=== PATIENT | male | born 1985 | race Caucasian/White ===

== ENCOUNTER 2017-10-31 22:08 | Emergency (ER) | payer MEDICAID, SELFPAY ==
[2017-11-01] MEDS: KETOROLAC 60 MG/2 ML VIAL (J1885) IM ×2 (01:30)
[2017-11-01] MEDS: diazePAM 5 MG TAB PO ×2 (01:30)
== END 2017-11-01 02:00 | disposition home or self-care (01) ==
LOC: M ED 22:08
DX: M54.41 Lumbago with sciatica, right side (principal); M54.42 Lumbago with sciatica, left side; S39.012A Strain of muscle, fascia and tendon of lower back, initial encounter; X58.XXXA Exposure to other specified factors, initial encounter; Y92.89 Other specified places as the place of occurrence of the external cause; Y93.89 Activity, other specified; Y99.8 Other external cause status; F17.210 Nicotine dependence, cigarettes, uncomplicated
CPT/HCPCS: J1885

== ENCOUNTER 2018-11-27 16:41 | Emergency (ER) | payer OTHER, SELFPAY ==
[~2018-11-27] VITALS: Ht 185.4 cm; Wt 70.5 kg
[2018-11-27 16:41] VITALS: BP 159/97
[~2018-11-27 16:41] MED LIST: KETO10TAB PO; VALI5TAB PO
--- NOTE | 2018-11-27 17:16 | REP ---
LEFT WRIST, FOUR VIEWS: HISTORY: Fall. There is no acute fracture or dislocation. The joint spaces are normal in appearance. IMPRESSION:There is no acute fracture or dislocation. Electronically Signed by Amol Slater MD 11/27/2018 05:25 P
== END 2018-11-27 17:48 | disposition home or self-care (01) ==
LOC: M ED 16:41
DX: S69.92XA Unspecified injury of left wrist, hand and finger(s), initial encounter (principal); W00.9XXA Unspecified fall due to ice and snow, initial encounter; Y92.9 Unspecified place or not applicable; Y93.9 Activity, unspecified; Y99.9 Unspecified external cause status; Z72.0 Tobacco use

== ENCOUNTER 2019-06-23 17:25 | Emergency (ER) | payer OTHER ==
[~2019-06-23] VITALS: Ht 185.4 cm; Wt 68.2 kg
[2019-06-23 17:26] VITALS: BP 138/85
== END 2019-06-23 19:10 | disposition left against medical advice (07) ==
LOC: M ED 17:25
DX: R11.10 Vomiting, unspecified (principal); Z53.21 Procedure and treatment not carried out due to patient leaving prior to being seen by health care provider

== ENCOUNTER 2019-07-20 15:11 | Emergency (ER) | payer OTHER ==
[~2019-07-20] VITALS: Ht 185.4 cm; Wt 64.6 kg
[2019-07-20] MEDS ORDERED: LIDOCAINE W/EPINEPHRINE 1% 20ML VIAL SC ONE (17:15)
[2019-07-20] MEDS ORDERED: KEFL500C17 PO (17:47)
[2019-07-20 17:55] VITALS: BP 144/90
== END 2019-07-20 17:56 | disposition home or self-care (01) ==
LOC: M ED 15:11
DX: S51.812A Laceration without foreign body of left forearm, initial encounter (principal); W26.8XXA Contact with other sharp object(s), not elsewhere classified, initial encounter; Y92.89 Other specified places as the place of occurrence of the external cause; Y99.0 Civilian activity done for income or pay; F17.210 Nicotine dependence, cigarettes, uncomplicated

== ENCOUNTER 2019-07-30 17:54 | Emergency (ER) | payer OTHER ==
[~2019-07-30] VITALS: Ht 185.4 cm; Wt 68.2 kg
[2019-07-30 17:54] VITALS: BP 130/90
[~2019-07-30 17:54] MED LIST changes: +KEFL500C17 PO
== END 2019-07-30 18:47 | disposition home or self-care (01) ==
LOC: M ED 17:54
DX: Z48.02 Encounter for removal of sutures (principal); F17.210 Nicotine dependence, cigarettes, uncomplicated

== ENCOUNTER → 2020-11-01 | Outpatient (CLI) | payer SELFPAY | LOC: M LABSMTC 13:53 | PROVIDERS: ATTEND Pediatrics | DX: Z20.828 Contact with and (suspected) exposure to other viral communicable diseases (principal) ==

== ENCOUNTER → 2024-01-21 | Outpatient (REF) | payer OTHER ==
[2024-01-21 18:17] LABS: BASO % 0.4 % (0.0-1.0); EOS % 0.5 % (0.0-3.0); HEMATOCRIT 45.9 % (42.0-52.0); HEMOGLOBIN 15.8 g/dl (13.5-17.5); MEAN CORPUSCULAR HEMOGLOBIN 32.1 pg (27.0-33.0); MEAN CORPUSCULAR HGB CONC 34.4 g/dl (32.0-36.5); MEAN CORPUSCULAR VOLUME 93.3 fl (80.0-96.0); MONO # 0.5 10^3/uL (0.0-0.8); NEUTROPHILS % 66.8 % (36.0-66.0); PLATELET COUNT, AUTOMATED 345 10^3/uL (150-450); RED BLOOD COUNT 4.92 10^6/uL (4.30-6.10); WHITE BLOOD COUNT 7.5 10^3/uL (4.0-10.0)
[2024-01-21 18:27] LABS: ERYTHROCYTE SEDIMENTATION RATE 2 mm/hr (0-15)
[2024-01-21 18:44] LABS: C REACTIVE PROTEIN QUANTITATIV < 0.40 MG/DL (<1.0)
[2024-01-21 18:46] LABS: RHEUMATOID FACTOR QUANT < 3.5 IU/ML (<14); THYROID STIMULATING HORMONE 0.669 uIU/ML (0.55-4.78)
[2024-01-21 18:47] LABS: ALBUMIN 4.2 G/DL (3.2-5.2); ALKALINE PHOSPHATASE 86 U/L (46-116); ALT/SGPT 31 U/L (7.0-40); AST/SGOT 21 U/L (<34); BILIRUBIN,TOTAL 0.3 MG/DL (0.3-1.2); BLOOD UREA NITROGEN 16 MG/DL (9-23); CALCIUM LEVEL 9.9 MG/DL (8.5-10.1); CARBON DIOXIDE LEVEL 29 MMOL/L (20-31); CHLORIDE LEVEL 104 MMOL/L (98-107); CHOLESTEROL LEVEL 160 MG/DL (<200); CHOLESTEROL RISK RATIO 2.64 (<5); CREATININE FOR GFR 0.87 MG/DL (0.70-1.30); FREE T4 0.97 NG/DL (0.89-1.76); GLOMERULAR FILTRATION RATE > 60.0 (>60); GLUCOSE, FASTING 121 MG/DL (60-100); HDL CHOLESTEROL 60.5 MG/DL (>40); LDL CHOLESTEROL 76.3 MG/DL (<100); NON-HDL-C 99.5 MG/DL; POTASSIUM SERUM 4.4 MMOL/L (3.5-5.1); SODIUM LEVEL 139 MMOL/L (136-145); TRIGLYCERIDES LEVEL 116 MG/DL (<150)
== END ==
LOC: M LABDRAWC 17:31
PROVIDERS: ATTEND Physician Assistant Medical
DX: M25.50 Pain in unspecified joint (principal); R06.02 Shortness of breath; R03.0 Elevated blood-pressure reading, without diagnosis of hypertension; Z13.220 Encounter for screening for lipoid disorders

== ENCOUNTER → 2024-01-21 | Outpatient (CLI) | payer OTHER | LOC: M CLY 13:36 | PROVIDERS: ATTEND Physician Assistant Medical | DX: R06.02 Shortness of breath (principal) ==